=== PATIENT | female | born 1970 | race Hispanic/Latino ===

== ENCOUNTER 2020-01-12 10:18 | Emergency (ER) | payer SELFPAY ==
--- NOTE | 2020-01-12 11:12 | Emergency Department Report ---
HPI - General Chief Complaint: Psych Time Seen by Provider: 01/12/20 10:54 - HPI HPI: This is a 49-year-old female who presents to the emergency department, for a mental health evaluation, with complaints of "I am hearing voices that tell me to kill myself." On top of that, the patient has severe depression. She says "I lost my house, my mother, my son, so I have nothing else to live for." She says that her mother is in a detention and "I do not know where my son is." Patient says that the voices have been telling her to use a knife to harm h erself. She has had thoughts of hanging herself in the past but has never been able to bring herself to do it. When asked about visual hallucinations, the patient says that she sees "weird stuff happening to my family." She denies any homicidal ideations. She says that she has been diagnosed in the past with depression and anxiety but is not on any medication for it. She otherwise has a past medical history of migraines. She denies any alcohol abuse or illicit drug use. ED Past Medical Hx - Past Medical History Previous Medical History?: Yes Hx Headaches / Migraines: Yes - Surgical History Past Surgical History?: Yes Hx Cholecystectomy: Yes Additional Surgical History: c section, hernia repair - Social History Smoking Status: Current Every Day Smoker Substance Use Type: None - Medications Home Medications: Home Medications Medication Instructions Recorded Confirmed Last Taken Type No Known Home Medications [No 01/12/20 01/12/20 Unknown History Reported Home Medications] ED Review of Systems ROS: Stated complaint: HEARING VOICES Other details as noted in HPI Comment: All other systems reviewed and negative Constitutional: denies: chills, fever Eyes: denies: vision change Respiratory: denies: shortness of breath Cardiovascular: denies: chest pain Gastrointestinal: denies: abdominal pain Musculoskeletal: denies: back pain, arthralgia Neurological: denies: headache, weakness Psychiatric: auditory hallucinations, visual hallucinations, suicidal thoughts. denies: homicidal thoughts Physical Exam - Physical Exam Vital Signs: Vital Signs 01/12/20 10:36 Temperature 98.1 F Pulse Rate 110 H Respiratory 20 Rate Blood Pressure 158/95 O2 Sat by Pulse 97 Oximetry Physical Exam: GENERAL: The patient is well-developed well-nourished. HENT: Normocephalic. Atraumatic. Patient has moist mucous membranes. EYES: Extraocular motions are intact. NECK: Supple. Trachea is midline. CHEST/LUNGS: Clear to auscultation. There is no respiratory distress noted. HEART/CARDIOVASCULAR: Regular. There is no tachycardia. ABDOMEN: Abdomen is soft, nontender. Patient has normal bowel sounds. SKIN: Skin is warm and dry. NEURO: The patient is awake, alert, and oriented. The patient is cooperative. Normal speech. MUSCULOSKELETAL: There is no tenderness or deformity. There is no limitation range of motion. PSYCH: Patient is tearful. ED Course Vital Signs 01/12/20 10:36 Temperature 98.1 F Pulse Rate 110 H Respiratory 20 Rate Blood Pressure 158/95 O2 Sat by Pulse 97 Oximetry - Reevaluation(s) Reevaluation #1: 01/12/20 17:06 Lab Results 01/12/20 01/12/20 01/12/20 Range/Units 11:06 11:06 11:06 WBC 11.8 H (4.5-11.0) K/mm3 RBC 5.27 H (3.65-5.03) M/mm3 Hgb 15.9 H (10.1-14.3) gm/dl Hct 46.4 H (30.3-42.9) % MCV 88 (79-97) fl MCH 30 (28-32) pg MCHC 34 (30-34) % RDW 14.0 (13.2-15.2) % Plt Count 276 (140-440) K/mm3 Lymph % (Auto) 17.0 (13.4-35.0) % [place] % (Auto) 4.0 (0.0-7.3) % Eos % (Auto) 0.6 (0.0-4.3) % Baso % (Auto) 0.9 (0.0-1.8) % Lymph # (Auto) 2.0 (1.2-5.4) K/mm3 [place] # (Auto) 0.5 (0.0-0.8) K/mm3 Eos # (Auto) 0.1 (0.0-0.4) K/mm3 Baso # (Auto) 0.1 (0.0-0.1) K/mm3 Seg Neutrophils % 77.5 H (40.0-70.0) % Seg Neutrophils # 9.2 H (1.8-7.7) K/mm3 Sodium 135 L (137-145) mmol/L Potassium 4.3 (3.6-5.0) mmol/L Chloride 99.8 (98-107) mmol/L Carbon Dioxide 23 (22-30) mmol/L Anion Gap 17 mmol/L BUN 12 (7-17) mg/dL Creatinine 0.9 (0.6-1.2) mg/dL Estimated GFR > 60 ml/min BUN/Creatinine Ratio 13 % Glucose 121 H (65-100) mg/dL Calcium 9.8 (8.4-10.2) mg/dL Urine Color (Yellow) Urine Turbidity (Clear) Urine pH (5.0-7.0) Ur Specific [place] (1.003-1.030) Urine Protein (Negative) mg/dL Urine Glucose (UA) (Negative) mg/dL Urine Ketones (Negative) mg/dL Urine Blood (Negative) Urine Nitrite (Negative) Urine Bilirubin (Negative) Urine Ictotest (Negative) Urine Urobilinogen (<2.0) mg/dL Ur Leukocyte Esterase (Negative) Urine WBC (Auto) (0.0-6.0) /HPF Urine RBC (Auto) (0.0-6.0) /HPF U Epithel Cells (Auto) (0-13.0) /HPF Urine Bacteria (Auto) (Negative) /HPF Urine Mucus /HPF Urine Opiates Screen Urine Methadone Screen Ur Barbiturates Screen Ur Phencyclidine Scrn Ur Amphetamines Screen U Benzodiazepines Scrn Urine Cocaine Screen U Marijuana (THC) Screen Drugs of Abuse Note Plasma/Serum Alcohol < 0.01 (0-0.07) % 01/12/20 01/12/20 Range/Units Unknown Unknown WBC (4.5-11.0) K/mm3 RBC (3.65-5.03) M/mm3 Hgb (10.1-14.3) gm/dl Hct (30.3-42.9) % MCV (79-97) fl MCH (28-32) pg MCHC (30-34) % RDW (13.2-15.2) % Plt Count (140-440) K/mm3 Lymph % (Auto) (13.4-35.0) % [place] % (Auto) (0.0-7.3) % Eos % (Auto) (0.0-4.3) % Baso % (Auto) (0.0-1.8) % Lymph # (Auto) (1.2-5.4) K/mm3 [place] # (Auto) (0.0-0.8) K/mm3 Eos # (Auto) (0.0-0.4) K/mm3 Baso # (Auto) (0.0-0.1) K/mm3 Seg Neutrophils % (40.0-70.0) % Seg Neutrophils # (1.8-7.7) K/mm3 Sodium (137-145) mmol/L Potassium (3.6-5.0) mmol/L Chloride (98-107) mmol/L Carbon Dioxide (22-30) mmol/L Anion Gap mmol/L BUN (7-17) mg/dL Creatinine (0.6-1.2) mg/dL Estimated GFR ml/min BUN/Creatinine Ratio % Glucose (65-100) mg/dL Calcium (8.4-10.2) mg/dL Urine Color [place] (Yellow) Urine Turbidity Slightly-cloudy (Clear) Urine pH 5.0 (5.0-7.0) Ur Specific [place] 1.027 (1.003-1.030) Urine Protein 100 mg/dl (Negative) mg/dL Urine Glucose (UA) Neg (Negative) mg/dL Urine Ketones Neg (Negative) mg/dL Urine Blood Sm (Negative) Urine Nitrite Neg (Negative) Urine Bilirubin Sm (Negative) Urine Ictotest Negative (Negative) Urine Urobilinogen 2.0 (<2.0) mg/dL Ur Leukocyte Esterase Mod (Negative) Urine WBC (Auto) 16.0 H (0.0-6.0) /HPF Urine RBC (Auto) 14.0 (0.0-6.0) /HPF U Epithel Cells (Auto) 10.0 (0-13.0) /HPF Urine Bacteria (Auto) 1+ (Negative) /HPF Urine Mucus 3+ /HPF Urine Opiates Screen Negative Urine Methadone Screen Negative Ur Barbiturates Screen Negative Ur Phencyclidine Scrn Negative Ur Amphetamines Screen Negative U Benzodiazepines Scrn Negative Urine Cocaine Screen Negative U Marijuana (THC) Screen Positive Drugs of Abuse Note Disclamer Plasma/Serum Alcohol (0-0.07) % ED Medical Decision Making - Lab Data Result diagrams: 01/12/20 11:06 01/12/20 11:06 - Medical Decision Making This patient presents to the emergency department with auditory and visual hallucinations. The auditory hallucinations are command hallucinations telling the patient to kill herself. Patient is depressed and tearful. Otherwise she is awake, oriented and alert. However the patient has been made a 1013 secondary to the suicidal ideations. Labs have been unremarkable other than a mild urinary tract infection for which she will be treated with Macrobid. Her vital signs have been reassuring throughout her ED course thus far including being afebrile. She was seen by the psychiatric business operations director who agrees with the patient is a 1013 and they will try to get the patient admitted for inpatient stabilization. She is medically cleared for psychiatric placement. Critical Care Time: No Critical care attestation.: If time is entered above; I have spent that time in minutes in the direct care of this critically ill patient, excluding procedure time. ED Disposition Clinical Impression: History of command hallucinations, Suicidal ideations Depression Qualifiers: Depression Type: unspecified Qualified Code(s): F32.9 - Major depressive disorder, single episode, unspecified UTI (urinary tract infection) Qualifiers: Urinary tract infection type: acute cystitis Hematuria presence: without hem aturia Qualified Code(s): N30.00 - Acute cystitis without hematuria Disposition: DC/TX-65 PSY HOSP/PSY UNIT Is pt being admited?: No Condition: Stable Time of Disposition: 17:08
[2020-01-12 11:17] LABS: Basophils # (Auto) 0.1 K/mm3 (0.0-0.1); Basophils % (Auto) 0.9 % (0.0-1.8); Eosinophils # (Auto) 0.1 K/mm3 (0.0-0.4); Eosinophils % (Auto) 0.6 % (0.0-4.3); Hematocrit 46.4 % (30.3-42.9); Hemoglobin 15.9 gm/dl (10.1-14.3); Mean Corpuscular HGB Conc 34 % (30-34); Mean Corpuscular Volume 88 fl (79-97); Monocytes # (Auto) 0.5 K/mm3 (0.0-0.8); Platelet Count 276 K/mm3 (140-440); Red Blood Count 5.27 M/mm3 (3.65-5.03)
[2020-01-12 11:36] LABS: BUN/Creatinine Ratio 13; Blood Urea Nitrogen 12 mg/dL (7-17); Calcium 9.8 mg/dL (8.4-10.2); Hemolysis Index 13
[2020-01-12 13:17] LABS: Bacteria,Urine 1+ /HPF (Negative); Bilirubin,Urine SM (Negative); Blood,Urine SM (Negative); Color,Urine Amber (Yellow); Mucus,Urine 3+ /HPF
[2020-01-12 13:23] LABS: Amphetamine Screen,Urine Negative; Benzodiazepines Screen,Urine Negative; Cocaine Screen,Urine Negative; Methadone Screen,Urine Negative; Opiate Screen,Urine Negative
[2020-01-12 13:38] LABS: Ictotest,Urine Negative (Negative)
[2020-01-12 13:41] LABS: Cannabinoid Screen,Urine Positive
[2020-01-12] MEDS ORDERED: ALPRAZolam 0.5 MG TAB PO ONE (13:48)
[2020-01-12] MEDS: NITROFURANTOIN MONOHYD/M-CRYST 100 MG CAP PO SCH ×2 (17:26→21:33)
[2020-01-12] MEDS ORDERED: hydrOXYzine HCL 25 MG TAB PO ONE (18:00)
[2020-01-12 21:21] LABS: Hematocrit 42.7 % (30.3-42.9); Hemoglobin 14.2 gm/dl (10.1-14.3); Mean Corpuscular HGB Conc 33 % (30-34); Mean Corpuscular Volume 90 fl (79-97); Platelet Count 232 K/mm3 (140-440); Red Blood Count 4.77 M/mm3 (3.65-5.03); Red Cell Distribution Width 14.1 % (13.2-15.2)
--- NOTE | 2020-01-13 10:56 | Consultation ---
History of Present Illness - Reason for Consult Consult date: 01/13/20 Reason for consult: depression, SI - History of Present Psychiatric Illness Paola Guardado is a 49y/o female who presented to the ER for severe depression, suicidal thoughts and hallucinations. During my interview with the patient today, she was sitting in bed. She was tearful. She makes fair eye contact. She verbalizes being "depressed and anxious." She also complains of "severe pain in her lower back." The patient says, "I've lost my house, my son, mom mom and everything I've owned." She verbalizes feeling suicidal with plans "to run into traffic and end it instantly or just take some pills." She says, "I don't know." She verbalizes voices saying "kill myself, I'm not good and I'm not worth l iving." She denies any illicit drug, alcohol or nicotine. She denies any psychiatric medications. She starts sobbing and states, "I know I shouldn't feel the way I feel." PAST PSYCHIATRIC HISTORY Diagnoses: Depression and anxiety Suicide attempts or Self-harm behavior: Denies Prior psychiatric hospitalizations: Denies Substance Abuse history: Denies Previous psychiatric medications tried: Not on any medications Outpatient treatment: none reported PAST MEDICAL HISTORY: none reported Family Psychiatric History: None reported or documented SOCIAL HISTORY Marital Status: single Living Arrangements: homeless Employment Status: unemployed Access to guns/weapons: none reported Education: High school drop out History of Abuse: none reported Legal History: yes REVIEW OF SYSTEMS Constitutional: Negative for weight loss ENT: Negative for stridor Respiratory: Negative for cough or hemoptysis All other systems reviewed and are negative MENTAL STATUS EXAMINATION General Appearance and Behavior: Age appropriate, fair hygiene, wearing appro priate clothes, lying in bed, fair eye contact, cooperative questioning. Cooperation: Participating Mood: Depressed, anxious Affect and affective range: Tearful Thought Process: Goal directed Thought Content: Hopelessness, hallucinations Speech: Normal volume, Regular rate and rhythm, Suicidal Ideation: Yes Homicidal Ideation: Denies HI Hallucinations: Auditory Delusions: None elicited Impulse Control: Impaired Insight and Judgment: Limited insight and judgment Memory: Short term memory intact Orientation: Alert, oriented, Assessment and Plan Major Depressive Disorder, Severe w/Psychotic Features Generalized Anxiety Disorder Treatment Plan MEDICATIONS Start Abilify 5mg po daily Start Zoloft 25mg po daily Start Klonopin 0.5mg po qd prn anxiety Start Trazodone 50mg po daily Risks, benefits and alternatives of medications discussed with the patient, questions answered and consent obtained from patient. PSYCHOTHERAPY: Supportive psychotherapy provided MEDICAL: Per primary team DELIRIUM PRECAUTIONS: Please re-orient patient frequently, keep lights on during the day, and minimize benzodiazepines and opiates as these medications could worsen patient's confusion. 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 Please contact with any questions and/or concerns. Medications and Allergies Allergies Allergy/AdvReac Type Severity Reaction Status Date / Time No Known Allergies Allergy Unverified 01/12/20 10:51 Home Medications Medication Instructions Recorded Confirmed Last Taken Type No Known Home Medications [No 01/12/20 01/12/20 Unknown History Reported Home Medications] Active Meds: Active Medications Nitrofurantoin Macrocrystals (Macrobid) 100 mg PO Q12HR [place] Last Admin: 01/12/20 21:33 Dose: Not Given Documented by: Mental Status Exam - Vital signs Last Vital Signs Temp 97.4 F L 01/13/20 10:31 Pulse 89 01/13/20 10:31 Resp 18 01/13/20 10:31 BP 135/79 01/13/20 10:31 Pulse Ox 100 01/13/20 10:31 Results Result Diagrams: 01/12/20 21:07 01/12/20 11:06 Abnormal lab results 01/12/20 01/12/20 01/12/20 Range/Units 11:06 11:06 Unknown WBC 11.8 H (4.5-11.0) K/mm3 RBC 5.27 H (3.65-5.03) M/mm3 Hgb 15.9 H (10.1-14.3) gm/dl Hct 46.4 H (30.3-42.9) % Seg Neutrophils % 77.5 H (40.0-70.0) % Seg Neutrophils # 9.2 H (1.8-7.7) K/mm3 Sodium 135 L (137-145) mmol/L Glucose 121 H (65-100) mg/dL Urine WBC (Auto) 16.0 H (0.0-6.0) /HPF All other labs normal.
[2020-01-13] MEDS ORDERED: ACETAMINOPHEN 325 MG TAB ONE (11:17)
[2020-01-13] MEDS ORDERED: ONDANSETRON 4 MG ODT TAB ONE (11:18)
[2020-01-13] MEDS ORDERED: ACETAMINOPHEN 325 MG TAB PO ONE (11:21)
[2020-01-13] MEDS ORDERED: ONDANSETRON 4 MG ODT TAB PO ONE (11:21)
[2020-01-13] MEDS: ARIPiprazole 5 MG TAB PO SCH (11:38)
[2020-01-13] MEDS: NITROFURANTOIN MONOHYD/M-CRYST 100 MG CAP PO SCH ×2 (11:38→22:28)
[2020-01-13] MEDS: SERTRALINE 25 MG TAB PO SCH (11:39)
[2020-01-13] MEDS ORDERED: traZODone 50 MG TAB PO SCH (22:00)
[2020-01-14] MEDS: SERTRALINE 25 MG TAB PO SCH (10:07)
[2020-01-14] MEDS: ARIPiprazole 5 MG TAB PO SCH (10:07)
[2020-01-14] MEDS: NITROFURANTOIN MONOHYD/M-CRYST 100 MG CAP PO SCH (10:07)
--- NOTE | 2020-01-14 10:19 | Progress Note ---
Subjective - Reason for Consult Consult date: 01/14/20 Reason for consult: SI, Severe Depression - Chief Complaint Chief complaint: During my interview with the patient, she is sitting up in bed. She is a/o x 3. She is calm and cooperative. Her affect is restricted. She still verbalizes "hearing the voices telling me I'm no good, and to just kill myself." She says "they keep saying I need to just end it." The patient verbalizes feeling suicidal, "not wanting to live." She also says she didn't sleep well last night. REVIEW OF SYSTEMS Constitutional: Negative for weight loss ENT: Negative for stridor Respiratory: Negative for cough or hemoptysis All other systems reviewed and are negative MENTAL STATUS EXAMINATION General Appearance and Behavior: Age appropriate, fair hygiene, wearing appropriate clothes, sitting up in bed, fair eye contact, cooperative questioning. Cooperation: Participating Mood: Depressed Affect and affective range: Restricted Thought Process: Goal directed Thought Content: Hopelessness, hallucinations Speech: Normal volume, Regular rate and rhythm, Suicidal Ideation: Yes Homicidal Ideation: Denies HI Hallucinations: Auditory Delusions: None elicited Impulse Control: Impaired Insight and Judgment: Limited insight and judgment Memory: Short term memory intact Orientation: Alert, oriented, Assessment and Plan Major Depressive Disorder, Severe w/Psychotic Features Generalized Anxiety Disorder Treatment Plan MEDICATIONS Increase Zoloft 50mg po daily Increase Trazodone 75mg po daily Risks, benefits and alternatives of medications discussed with the patient, questions answered and consent obtained from patient. PSYCHOTHERAPY: Supportive psychotherapy provided MEDICAL: Per primary team DELIRIUM PRECAUTIONS: Please re-orient patient frequently, keep lights on during the day, and minimize benzodiazepines and opiates as these medications could worsen patient's confusion. OFFICE PROFESSIONAL: DISPOSITION: Recommend acute inpatient psychiatric hospitalization LEGAL STATUS: 1013 FOLLOW-UP: Will follow Thank you for the consult. Please contact with any questions and/or concerns. Mental Status Exam - Vital signs Last Vital Signs Temp 98.6 F 01/14/20 07:56 Pulse 65 01/14/20 07:56 Resp 16 01/14/20 07:56 BP 124/57 01/14/20 07:56 Pulse Ox 95 01/14/20 07:56
[2020-01-14] MEDS: traZODone 50 MG TAB PO SCH (21:35)
[2020-01-15] MEDS: SERTRALINE 50 MG TAB PO SCH (10:19)
[2020-01-15] MEDS: ARIPiprazole 5 MG TAB PO SCH (10:19)
--- NOTE | 2020-01-15 11:15 | Progress Note ---
Subjective - Reason for Consult Consult date: 01/15/20 Reason for consult: SI, severe depression - Chief Complaint Chief complaint: During my interview with the patient, she is sitting up in bed. She is a/o x 3. She is calm and cooperative. Her affect is restricted. The patient says she's hearing "a lot of voices telling my I need to ." She says "some are whispering and some are yelling." She verbalizes her mood as "depressed and anxious" and states, she "doesn't want to live." REVIEW OF SYSTEMS Constitutional: Negative for weight loss ENT: Negative for stridor Respiratory: Negative for cough or hemoptysis All other systems reviewed and are negative MENTAL STATUS EXAMINATION General Appearance and Behavior: Age appropriate, fair hygiene, wearing appropriate clothes, sitting up in bed, fair eye contact, cooperative questioning. Cooperation: Participating Mood: Depressed Affect and affective range: Restricted Thought Process: Goal directed Thought Content: Hopelessness, hallucinations Speech: Normal volume, Regular rate and rhythm, Suicidal Ideation: Yes Homicidal Ideation: Denies HI Hallucinations: Auditory Delusions: None elicited Impulse Control: Impaired Insight and Judgment: Limited insight and judgment Memory: Short term memory intact Orientation: Alert, oriented, Assessment and Plan Major Depressive Disorder, Severe w/Psychotic Features Generalized Anxiety Disorder Treatment Plan MEDICATIONS Increase Abilify 10mg po daily Risks, benefits and alternatives of medications discussed with the patient, questions answered and consent obtained from patient. PSYCHOTHERAPY: Supportive psychotherapy provided MEDICAL: Per primary team DELIRIUM PRECAUTIONS: Please re-orient patient frequently, keep lights on during the day, and minimize benzodiazepines and opiates as these medications could worsen patient's confusion. 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 Please contact with any questions and/or concerns. Mental Status Exam - Vital signs Last Vital Signs Temp 97.3 F L 01/15/20 08:39 Pulse 66 01/15/20 08:39 Resp 18 01/15/20 08:39 BP 139/70 01/15/20 08:39 Pulse Ox 100 01/15/20 08:39
[2020-01-15] MEDS ORDERED: IBUPROFEN 600 MG TAB PO ONE (17:40)
[2020-01-15] MEDS: traZODone 50 MG TAB PO SCH (21:40)
[2020-01-16] MEDS ORDERED: ARIPiprazole 10 MG TAB PO SCH (10:00)
[2020-01-16] MEDS ORDERED: LORazepam 0.5 MG TAB ONE (13:44)
--- NOTE | 2020-01-16 19:18 | Progress Note ---
Subjective - Reason for Consult Consult date: 01/16/20 Reason for consult: depression, SI - Chief Complaint Chief complaint: During my interview with the patient, she is sitting up in bed. The patient tested positive positive for Covid. She is a/o x 3. She still verbalizes suicidal thoughts and voices telling her to "kill myself." REVIEW OF SYSTEMS Constitutional: Negative for weight loss ENT: Negative for stridor Respiratory: Negative for cough or hemoptysis All other systems reviewed and are negative MENTAL STATUS EXAMINATION General Appearance and Behavior: Age appropriate, fair hygiene, wearing appropriate clothes, fair eye contact, cooperative questioning. Cooperation: Participating Mood: Depressed Affect and affective range: Restricted Thought Process: Goal directed Thought Content: Hopelessness, hallucinations Speech: Normal volume, Regular rate and rhythm, Suicidal Ideation: Yes Homicidal Ideation: Denies HI Hallucinations: Auditory Delusions: None elicited Impulse Control: Impaired Insight and Judgment: Limited insight and judgment Memory: Short term memory intact Orientation: Alert, oriented, Assessment and Plan Major Depressive Disorder, Severe w/Psychotic Features Generalized Anxiety Disorder Treatment Plan MEDICATIONS Increase Abilify 15mg po daily Risks, benefits and alternatives of medications discussed with the patient, questions answered and consent obtained from patient. PSYCHOTHERAPY: Supportive psychotherapy provided MEDICAL: Per primary team DELIRIUM PRECAUTIONS: Please re-orient patient frequently, keep lights on during the day, and minimize benzodiazepines and opiates as these medications could worsen patient's confusion. 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 Please contact with any questions and/or concerns. Mental Status Exam - Vital signs Last Vital Signs Temp 97.3 F L 01/15/20 08:39 Pulse 66 01/15/20 08:39 Resp 18 01/15/20 08:39 BP 139/70 01/15/20 08:39 Pulse Ox 100 01/15/20 08:39
[2020-01-16] MEDS: traZODone 50 MG TAB PO SCH (22:28)
[2020-01-17] MEDS: SERTRALINE 50 MG TAB PO SCH ×2 (08:38→10:20)
[2020-01-17] MEDS ORDERED: ARIPiprazole 15 MG TAB PO SCH (10:00)
--- NOTE | 2020-01-17 11:21 | Progress Note ---
Subjective - Reason for Consult Consult date: 01/17/20 Reason for consult: SI - Chief Complaint Chief complaint: During my interview with the patient, she is sitting up in bed. The patient states she is "better" as far has her hallucinations and suicidal thoughts. She says the hallucinations are there "some but better." She says her suicidal thoughts have decreased a lot. She says "it's the COVID that I'm worried about now." The patient says she slept well. REVIEW OF SYSTEMS Constitutional: Negative for weight loss ENT: Negative for stridor Respiratory: Negative for cough or hemoptysis All other systems reviewed and are negative MENTAL STATUS EXAMINATION General Appearance and Behavior: Age appropriate, fair hygiene, wearing appropriate clothes, fair eye contact, cooperative questioning. Cooperation: Participating Mood: "better" Affect and affective range: Congruent with stated mood Thought Process: Goal directed Thought Content: logical Speech: Normal volume, Regular rate and rhythm, Suicidal Ideation: Passive, but better Homicidal Ideation: Denies HI Hallucinations: Auditory Delusions: None elicited Impulse Control: Limited Insight and Judgment: Limited insight and judgment Memory: Short term memory intact Orientation: Alert, oriented, Assessment and Plan Major Depressive Disorder, Severe w/Psychotic Features Generalized Anxiety Disorder Treatment Plan MEDICATIONS Increase Abilify 20mg po daily Risks, benefits and alternatives of medications discussed with the patient, questions answered and consent obtained from patient. PSYCHOTHERAPY: Supportive psychotherapy provided MEDICAL: Per primary team DELIRIUM PRECAUTIONS: Please re-orient patient frequently, keep lights on during the day, and minimize benzodiazepines and opiates as these medications could worsen patient's confusion. 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 The patient understands that FOLLOW-UP: Will follow Legal status: 1013 Thank you for the consult. Please contact with any questions and/or concerns. Mental Status Exam - Vital signs Last Vital Signs Temp 97.9 F 01/17/20 07:41 Pulse 64 01/17/20 07:41 Resp 20 01/17/20 07:41 BP 102/47 01/17/20 07:41 Pulse Ox 96 01/17/20 07:41
[2020-01-17] MEDS ORDERED: hydrOXYzine PAMOATE 25 MG CAP PO ONE (15:27)
[2020-01-17] MEDS: traZODone 50 MG TAB PO SCH (22:28)
[2020-01-17] MEDS: clonazePAM 0.5 MG TAB PO PRN (22:31)
[2020-01-18] MEDS: ARIPiprazole 10 MG TAB PO SCH (09:45)
[2020-01-18] MEDS: SERTRALINE 50 MG TAB PO SCH (09:46)
--- NOTE | 2020-01-18 10:04 | Progress Note ---
Subjective - Reason for Consult Consult date: 01/18/20 Reason for consult: SI/Depression - Chief Complaint Chief complaint: During my interview with the patient, she is sitting up in bed eating. She is a/o x 3. She is calm and cooperative. The patient verbalizes feeling "much better." She says she's "it comes and goes, and but I don't have a plan." The patient says most of her problems come from "not having a place to go." She says her "brother called up here. I'm not sure how he found out." When asking the patient if she could live with her brother, she replied "I doubt it. My [id number] hates my guts." She denies hallucinations of any kind. REVIEW OF SYSTEMS Constitutional: Negative for weight loss ENT: Negative for stridor Respiratory: Negative for cough or hemoptysis All other systems reviewed and are negative MENTAL STATUS EXAMINATION General Appearance and Behavior: Age appropriate, fair hygiene, wearing appropriate clothes, fair eye contact, cooperative questioning. Cooperation: Participating Mood: "much better" Affect and affective range: Congruent with stated mood Thought Process: Goal directed Thought Content: logical Speech: Normal volume, Regular rate and rhythm, Suicidal Ideation: Passive, but better, no plan Homicidal Ideation: Denies HI Hallucinations: Denies Delusions: None elicited Impulse Control: Limited Insight and Judgment: Limited insight and judgment Memory: Short term memory intact Orientation: Alert, oriented, Assessment and Plan Major Depressive Disorder, Severe w/Psychotic Features Generalized Anxiety Disorder Treatment Plan D/c 1013 MEDICATIONS No changes today Risks, benefits and alternatives of medications discussed with the patient, questions answered and consent obtained from patient. PSYCHOTHERAPY: Supportive psychotherapy provided MEDICAL: Per primary team DELIRIUM PRECAUTIONS: Please re-orient patient frequently, keep lights on during the day, and minimize benzodiazepines and opiates as these medications could worsen patient's confusion. ASSISTANT DIRECTOR OF PLANT OPERATIONS: DISPOSITION: Do not recommend acute inpatient psychiatric hospitalization at this time. The patient symptoms can be managed on an outpatient basis. The patient is COVID + and will likely not meet criteria due to this. Case management needs to be on the case to help with placement. The patient understands that if suicidal ideation becomes worse she is to seek immediate assistance including the crisis hotline, 911/ER. The wrestling coach to further discuss the safety plan, give the patient outpatient referrals, cognitive behavior therapy, assistance with medication, and placement referrals. Will sign off. Thank you for the consult. Please re-consult if needed in the future. Please contact with any questions and/or concerns. Mental Status Exam - Vital signs Last Vital Signs Temp 98.3 F 01/18/20 08:16 Pulse 74 01/18/20 08:16 Resp 18 01/18/20 08:16 BP 99/50 01/18/20 08:16 Pulse Ox 100 01/18/20 00:45
[2020-01-18] MEDS: clonazePAM 0.5 MG TAB PO PRN (16:02)
[2020-01-18] MEDS: traZODone 50 MG TAB PO SCH (22:12)
[2020-01-19] MEDS: SERTRALINE 50 MG TAB PO SCH (09:57)
[2020-01-19] MEDS: ARIPiprazole 10 MG TAB PO SCH (09:57)
[2020-01-19] MEDS: clonazePAM 0.5 MG TAB PO PRN (13:07)
[2020-01-20] MEDS: traZODone 50 MG TAB PO SCH ×2 (10:14→22:39)
[2020-01-20] MEDS: clonazePAM 0.5 MG TAB PO PRN (13:20)
[2020-01-20] MEDS: ARIPiprazole 10 MG TAB PO SCH (13:20)
[2020-01-20] MEDS: SERTRALINE 50 MG TAB PO SCH (13:20)
[2020-01-21] MEDS: ARIPiprazole 10 MG TAB PO SCH (10:07)
[2020-01-21] MEDS: SERTRALINE 50 MG TAB PO SCH (10:08)
[2020-01-21] MEDS: clonazePAM 0.5 MG TAB PO PRN ×2 (12:42→22:47)
[2020-01-21] MEDS: traZODone 50 MG TAB PO SCH (22:15)
[2020-01-22 10:19] VITALS: BP 109/65
[2020-01-22] MEDS: ARIPiprazole 10 MG TAB PO SCH (11:14)
[2020-01-22] MEDS: SERTRALINE 50 MG TAB PO SCH (11:15)
== END 2020-01-22 11:16 | disposition home or self-care (01) ==
LOC: EEVIPCON 10:18 → ED 10:18
DX: R44.0 Auditory hallucinations (principal)
CPT/HCPCS: 36415; 80048; 80307; 80320; 81001; 85025; 85027; 87086; G0480; Q0162; Q0177; U0003

== ENCOUNTER 2020-01-22 18:14 | Emergency (ER) | payer SELFPAY ==
--- NOTE | 2020-01-22 18:33 | Emergency Department Report ---
Blank Doc - Documentation Documentation: This is a 49-year-old female that presents with hearing voices and SI. This initial assessment/diagnostic orders/clinical plan/treatment(s) is/are subject to change based on patient's health status, clinical progression and re- assessment by fellow clinical providers in the ED. Further treatment and workup at subsequent clinical providers discretion. Patient/guardians urged not to elope from the ED as their condition may be serious if not clinically assessed and managed. Initial orders include: 1- Patient sent to MAIN ED for further evaluation and treatment 2- academic services professional was notified to have patient be brought back [facility]. 3- RN was notified to keep patient as close range and observation until room available 4- Patient presents with substantial risk of imminent harm to self, appears to be so unable to care for his/her own physical health and safety as to create an imminently life-endangering crisis, and has committed/expressed life endangering crisis to self. Due to this and other complaints, patient is put on psych hold.
[2020-01-22 19:07] LABS: Basophils # (Auto) 0.1 K/mm3 (0.0-0.1); Basophils % (Auto) 1.2 % (0.0-1.8); Eosinophils % (Auto) 0.5 % (0.0-4.3); Hematocrit 42.5 % (30.3-42.9); Hemoglobin 14.3 gm/dl (10.1-14.3); Lymphocytes % (Auto) 28.7 % (13.4-35.0); Mean Corpuscular HGB Conc 34 % (30-34); Mean Corpuscular Volume 90 fl (79-97); Monocytes # (Auto) 0.3 K/mm3 (0.0-0.8); Monocytes % (Auto) 4.7 % (0.0-7.3); Platelet Count 249 K/mm3 (140-440); Red Blood Count 4.75 M/mm3 (3.65-5.03); Red Cell Distribution Width 13.3 % (13.2-15.2)
[2020-01-22 19:25] LABS: BUN/Creatinine Ratio 25; Blood Urea Nitrogen 20 mg/dL (7-17); Calcium 9.8 mg/dL (8.4-10.2); Hemolysis Index 11
[2020-01-22 21:26] LABS: Bilirubin,Urine NEG (Negative); Blood,Urine MOD (Negative); Color,Urine Yellow (Yellow); Mucus,Urine FEW /HPF; Protein,Urine <15 mg/dL mg/dL (Negative); Urobilinogen,Urine < 2.0 mg/dL (<2.0)
[2020-01-22 21:32] LABS: Amphetamine Screen,Urine PRESUMPTIVE NEGATIVE; Benzodiazepines Screen,Urine PRESUMPTIVE NEGATIVE; Cannabinoid Screen,Urine PRESUMPTIVE NEGATIVE; Cocaine Screen,Urine PRESUMPTIVE NEGATIVE; Methadone Screen,Urine PRESUMPTIVE NEGATIVE; Opiate Screen,Urine PRESUMPTIVE NEGATIVE
[2020-01-22] MEDS ORDERED: clonazePAM 0.5 MG TAB PO PRN (22:25)
--- NOTE | 2020-01-22 22:28 | Emergency Department Report ---
HPI - General Chief Complaint: Psych Time Seen by Provider: 01/22/20 18:31 - HPI HPI: This patient returns from the waiting room, after being discharged earlier today, with the complaints of continued auditory hallucinations and command hallucinations causing suicidal ideations. Overall the patient does admit to having depression. Patient was not picked up by the person that she was depending upon to pick her up from the hospital. She says that she contacted her brothers and "they do not care." She feels that she has little to no worth. Apparently her mother is currently sick and "dying." Patient says that she hears voices "every day of my life." Patient was cleared by psychiatry but she says that she was continuing to hear voices and has suicidal ideations. Patient says that she would have a plan to either jump off of a building or cut her wrists to harm herself. She denies any homicidal ideations. ED Past Medical Hx - Past Medical History Previous Medical History?: Yes Hx Headaches / Migraines: Yes Hx Psychiatric Treatment: Yes - Surgical History Past Surgical History?: Yes Hx Cholecystectomy: Yes Additional Surgical History: c section, hernia repair - Social History Smoking Status: Current Every Day Smoker Substance Use Type: None - Medications Home Medications: Home Medications Medication Instructions Recorded Confirmed Last Taken Type ARIPiprazole [Abilify] 20 mg PO DAILY #30 tablet 01/18/20 01/22/20 Unknown Rx Sertraline [Zoloft] 50 mg PO QDAY #30 tablet 01/18/20 01/22/20 Unknown Rx clonazePAM [ Klonopin] 0.5 mg PO QHS PRN #30 tab 01/18/20 01/22/20 Unknown Rx traZODone [Desyrel] 75 mg PO QHS 01/22/20 01/22/20 Unknown History ED Review of Systems ROS: Stated complaint: HEARING VOICES/DEPRESSED Other details as noted in HPI Comment: All other systems reviewed and negative Constitutional: denies: chills, fever Respiratory: denies: cough, shortness of breath Cardiovascular: denies: chest pain Gastrointestinal: denies: abdominal pain Musculoskeletal: denies: back pain, arthralgia Neurological: denies: headache, weakness Psychiatric: anxiety, depression, auditory hallucinations, suicidal thoughts Physical Exam - Physical Exam Vital Signs: Vital Signs 01/22/20 18:26 Temperature 97.6 F Pulse Rate 71 Respiratory 18 Rate Blood Pressure 148/89 [Right] O2 Sat by Pulse 99 Oximetry Physical Exam: GENERAL: The patient is well-developed well-nourished. HENT: Normocephalic. Atraumatic. Patient has moist mucous membranes. EYES: Extraocular motions are intact. NECK: Supple. Trachea is midline. CHEST/LUNGS: Clear to auscultation. There is no respiratory distress noted. HEART/CARDIOVASCULAR: Regular. There is no tachycardia. There is no murmur. ABDOMEN: Abdomen is soft, nontender. Patient has normal bowel sounds. SKIN: Skin is warm and dry. NEURO: The patient is awake, alert, and oriented. The patient is cooperative. Normal speech. MUSCULOSKELETAL: There is no tenderness or deformity. ED Course Vital Signs 01/22/20 18:26 Temperature 97.6 F Pulse Rate 71 Respiratory 18 Rate Blood Pressure 148/89 [Right] O2 Sat by Pulse 99 Oximetry - Reevaluation(s) Reevaluation #1: 01/23/20 03:49 Lab Results 01/22/20 01/22/20 01/22/20 Range/Units 18:47 18:47 18:47 WBC 7.0 (4.5-11.0) K/mm3 RBC 4.75 (3.65-5.03) M/mm3 Hgb 14.3 (10.1-14.3) gm/dl Hct 42.5 (30.3-42.9) % MCV 90 (79-97) fl MCH 30 (28-32) pg MCHC 34 (30-34) % RDW 13.3 (13.2-15.2) % Plt Count 249 (140-440) K/mm3 Lymph % (Auto) 28.7 (13.4-35.0) % [place] % (Auto) 4.7 (0.0-7.3) % Eos % (Auto) 0.5 (0.0-4.3) % Baso % (Auto) 1.2 (0.0-1.8) % Lymph # (Auto) 2.0 (1.2-5.4) K/mm3 [place] # (Auto) 0.3 (0.0-0.8) K/mm3 Eos # (Auto) 0.0 (0.0-0.4) K/mm3 Baso # (Auto) 0.1 (0.0-0.1) K/mm3 Seg Neutrophils % 64.9 (40.0-70.0) % Seg Neutrophils # 4.6 (1.8-7.7) K/mm3 Sodium 138 (137-145) mmol/L Potassium 4.1 (3.6-5.0) mmol/L Chloride 98.0 (98-107) mmol/L Carbon Dioxide 25 (22-30) mmol/L Anion Gap 19 mmol/L BUN 20 H (7-17) mg/dL Creatinine 0.8 (0.6-1.2) mg/dL Estimated GFR > 60 ml/min BUN/Creatinine Ratio 25 % Glucose 106 H (65-100) mg/dL Calcium 9.8 (8.4-10.2) mg/dL Urine Color (Yellow) Urine Turbidity (Clear) Urine pH (5.0-7.0) Ur Specific Shield[place] (1.003-1.030) Urine Protein (Negative) mg/dL Urine Glucose (UA) (Negative) mg/dL Urine Ketones (Negative) mg/dL Urine Blood (Negative) Urine Nitrite (Negative) Urine Bilirubin (Negative) Urine Urobilinogen (<2.0) mg/dL Ur Leukocyte Esterase (Negative) Urine WBC (Auto) (0.0-6.0) /HPF Urine RBC (Auto) (0.0-6.0) /HPF U Epithel Cells (Auto) (0-13.0) /HPF Urine Mucus /HPF Salicylates < 0.3 L (2.8-20.0) mg/dL Urine Opiates Screen Urine Methadone Screen Acetaminophen (10.0-30.0) ug/mL Ur Barbiturates Screen Ur Phencyclidine Scrn Ur Amphetamines Screen U Benzodiazepines Scrn Urine Cocaine Screen U Marijuana (THC) Screen Drugs of Abuse Note Plasma/Serum Alcohol (0-0.07) % 01/22/20 01/22/20 01/22/20 Range/Units 18:47 18:47 20:49 WBC (4.5-11.0) K/mm3 RBC (3.65-5.03) M/mm3 Hgb (10.1-14.3) gm/dl Hct (30.3-42.9) % MCV (79-97) fl MCH (28-32) pg MCHC (30-34) % RDW (13.2-15.2) % Plt Count (140-440) K/mm3 Lymph % (Auto) (13.4-35.0) % [place] % (Auto) (0.0-7.3) % Eos % (Auto) (0.0-4.3) % Baso % (Auto) (0.0-1.8) % Lymph # (Auto) (1.2-5.4) K/mm3 [place] # (Auto) (0.0-0.8) K/mm3 Eos # (Auto) (0.0-0.4) K/mm3 Baso # (Auto) (0.0-0.1) K/mm3 Seg Neutrophils % (40.0-70.0) % Seg Neutrophils # (1.8-7.7) K/mm3 Sodium (137-145) mmol/L Potassium (3.6-5.0) mmol/L Chloride (98-107) mmol/L Carbon Dioxide (22-30) mmol/L Anion Gap mmol/L BUN (7-17) mg/dL Creatinine (0.6-1.2) mg/dL Estimated GFR ml/min BUN/Creatinine Ratio % Glucose (65-100) mg/dL Calcium (8.4-10.2) mg/dL Urine Color Yellow (Yellow) Urine Turbidity Slightly-cloudy (Clear) Urine pH 5.0 (5.0-7.0) Ur Specific Shield[place] 1.026 (1.003-1.030) Urine Protein <15 mg/dl (Negative) mg/dL Urine Glucose (UA) Neg (Negative) mg/dL Urine Ketones Neg (Negative) mg/dL Urine Blood Mod (Negative) Urine Nitrite Neg (Negative) Urine Bilirubin Neg (Negative) Urine Urobilinogen < 2.0 (<2.0) mg/dL Ur Leukocyte Esterase Lg (Negative) Urine WBC (Auto) 31.0 H (0.0-6.0) /HPF Urine RBC (Auto) 7.0 (0.0-6.0) /HPF U Epithel Cells (Auto) 8.0 (0-13.0) /HPF Urine Mucus Few /HPF Salicylates (2.8-20.0) mg/dL Urine Opiates Screen Urine Methadone Screen Acetaminophen 5.0 L (10.0-30.0) ug/mL Ur Barbiturates Screen Ur Phencyclidine Scrn Ur Amphetamines Screen U Benzodiazepines Scrn Urine Cocaine Screen U Marijuana (THC) Screen Drugs of Abuse Note Plasma/Serum Alcohol < 0.01 (0-0.07) % 01/22/20 Range/Units 20:49 WBC (4.5-11.0) K/mm3 RBC (3.65-5.03) M/mm3 Hgb (10.1-14.3) gm/dl Hct (30.3-42.9) % MCV (79-97) fl MCH (28-32) pg MCHC (30-34) % RDW (13.2-15.2) % Plt Count (140-440) K/mm3 Lymph % (Auto) (13.4-35.0) % [place] % (Auto) (0.0-7.3) % Eos % (Auto) (0.0-4.3) % Baso % (Auto) (0.0-1.8) % Lymph # (Auto) (1.2-5.4) K/mm3 [place] # (Auto) (0.0-0.8) K/mm3 Eos # (Auto) (0.0-0.4) K/mm3 Baso # (Auto) (0.0-0.1) K/mm3 Seg Neutrophils % (40.0-70.0) % Seg Neutrophils # (1.8-7.7) K/mm3 Sodium (137-145) mmol/L Potassium (3.6-5.0) mmol/L Chloride (98-107) mmol/L Carbon Dioxide (22-30) mmol/L Anion Gap mmol/L BUN (7-17) mg/dL Creatinine (0.6-1.2) mg/dL Estimated GFR ml/min BUN/Creatinine Ratio % Glucose (65-100) mg/dL Calcium (8.4-10.2) mg/dL Urine Color (Yellow) Urine Turbidity (Clear) Urine pH (5.0-7.0) Ur Specific [place] (1.003-1.030) Urine Protein (Negative) mg/dL Urine Glucose (UA) (Negative) mg/dL Urine Ketones (Negative) mg/dL Urine Blood (Negative) Urine Nitrite (Negative) Urine Bilirubin (Negative) Urine Urobilinogen (<2.0) mg/dL Ur Leukocyte Esterase (Negative) Urine WBC (Auto) (0.0-6.0) /HPF Urine RBC (Auto) (0.0-6.0) /HPF U Epithel Cells (Auto) (0-13.0) /HPF Urine Mucus /HPF Salicylates (2.8-20.0) mg/dL Urine Opiates Screen Presumptive negative Urine Methadone Screen Presumptive negative Acetaminophen (10.0-30.0) ug/mL Ur Barbiturates Screen Presumptive negative Ur Phencyclidine Scrn Presumptive negative Ur Amphetamines Screen Presumptive negative U Benzodiazepines Scrn Presumptive negative Urine Cocaine Screen Presumptive negative U Marijuana (THC) Screen Presumptive negative Drugs of Abuse Note Disclamer Plasma/Serum Alcohol (0-0.07) % ED Medical Decision Making - Lab Data Result diagrams: 01/22/20 18:47 01/22/20 18:47 - Medical Decision Making This patient returns to the emergency department with command hallucinations causing suicidal ideations. The patient would have a plan to either jump off of a building or cut her wrists. For these reasons the patient has been made a 1013. Labs have been unremarkable except for a mild urinary tract infection that will be treated with Macrobid. The patient's vital signs have been reassuring throughout her ED course. The psychiatric at home medications have been restarted. Patient was seen by the psychiatric producer arborist manager who, at this time, recommends inpatient stabilization. Critical Care Time: No Critical care attestation.: If time is entered above; I have spent that time in minutes in the direct care of this critically ill patient, excluding procedure time. ED Disposition Clinical Impression: History of command hallucinations, Suicidal ideations Depression Qualifiers: Depression Type: unspecified Qualified Code(s): F32.9 - Major depressive disorder, single episode, unspecified Disposition: DC/TX-65 PSY HOSP/PSY UNIT Is pt being admited?: No Condition: Stable Time of Disposition: 03:50
[2020-01-23] MEDS: NITROFURANTOIN MONOHYD/M-CRYST 100 MG CAP PO SCH ×2 (09:25→10:44)
--- NOTE | 2020-01-23 09:41 | Consultation ---
History of Present Illness - Reason for Consult Consult date: 01/23/20 Reason for consult: MHE Requesting physician: BUSHRA HARKINS - History of Present Psychiatric Illness PSYCH HPI Patient is a 49 year old homeless, unemployed and with children Female with no significant past medical history who presents today with chief complaints of suicidal ideation and command auditory hallucination. Patient reports she feels hopeless, helpless and has nothing to live for. She became homeless in March after her mom had a stroke and her brother took guardianship of the house. She has since then had no place to stay, she also reports her daughter didnt want anything to do with her, her son is not talking to her and no family member cares. SHe endorses prior history of marijuanna and alcohol use, has been living with mom and helping her at home for over 10 years. PAST PSYCHIATRIC HISTORY Diagnoses: Depression and anxiety Suicide attempts or Self-harm behavior: Denies Prior psychiatric hospitalizations: Denies Substance Abuse history: Denies Previous psychiatric medications tried: Not on any medications Outpatient treatment: none reported PAST MEDICAL HISTORY: none reported Family Psychiatric History: None reported or documented SOCIAL HISTORY Marital Status: single Living Arrangements: homeless Employment Status: unemployed Access to guns/weapons: none reported Education: High school drop out History of Abuse: none reported Legal History: yes REVIEW OF SYSTEMS Constitutional: Negative for weight loss ENT: Negative for stridor Respiratory: Negative for cough or hemoptysis All other systems reviewed and are negative MENTAL STATUS EXAMINATION General Appearance and Behavior: Age appropriate, fair hygiene, wearing appropriate clothes, lying in bed, fair eye contact, cooperative questioning. Cooperation: Participating Mood: Depressed, anxious Affect and affective range: Tearful Thought Process: Goal directed Thought Content: Hopelessness, helplessness, hallucinations Speech: Normal volume, Regular rate and rhythm, Suicidal Ideation: Yes Homicidal Ideation: Denies HI Hallucinations: Auditory Delusions: None elicited Impulse Control: Impaired Insight and Judgment: Limited insight and judgment Memory: Short term memory intact Orientation: Alert, oriented, Assessment and Plan Major Depressive Disorder, Severe w/Psychotic Features Generalized Anxiety Disorder Treatment Plan MEDICATIONS Risks, benefits and alternatives of medications discussed with the patient, questions answered and consent obtained from patient. PSYCHOTHERAPY: Supportive psychotherapy provided MEDICAL: Per primary team DELIRIUM PRECAUTIONS: Please re-orient patient frequently, keep lights on during the day, and minimize benzodiazepines and opiates as these medications could worsen patient's confusion. NEEDLE LOOM OPERATOR: DISPOSITION: Recommend acute inpatient psychiatric hospitalization LEGAL STATUS: 1013 FOLLOW-UP: Will follow Thank you for the consult. Please contact with any questions and/or concerns. Medications and Allergies Allergies Allergy/AdvReac Type Severity Reaction Status Date / Time No Known Allergies Allergy Unverified 01/12/20 10:51 Home Medications Medication Instructions Recorded Confirmed Last Taken Type ARIPiprazole [Abilify] 20 mg PO DAILY #30 tablet 01/18/20 01/22/20 Unknown Rx Sertraline [Zoloft] 50 mg PO QDAY #30 tablet 01/18/20 01/22/20 Unknown Rx clonazePAM [ Klonopin] 0.5 mg PO QHS PRN #30 tab 01/18/20 01/22/20 Unknown Rx traZODone [Desyrel] 75 mg PO QHS 01/22/20 01/22/20 Unknown History Active Meds: Active Medications Aripiprazole (Aripiprazole) 20 mg PO DAILY [facility] Clonazepam (Klonopin) 0.5 mg PO QHS PRN PRN Reason: Anxiety Nitrofurantoin Macrocrystals (Macrobid) 100 mg PO Q12HR [facility] Last Admin: 01/23/20 09:25 Dose: Not Given Documented by: Sertraline HCl (Zoloft) 50 mg PO QDAY [facility] Trazodone HCl (Desyrel) 50 mg PO QHS [facility] Mental Status Exam - Vital signs Last Vital Signs Temp 98.1 F 01/23/20 00:47 Pulse 66 01/23/20 00:47 Resp 18 01/23/20 00:47 BP 148/89 01/23/20 00:47 Pulse Ox 98 01/23/20 00:47 Results Result Diagrams: 01/22/20 18:47 01/22/20 18:47 Abnormal lab results 01/22/20 01/22/20 01/22/20 Range/Units 18:47 18:47 18:47 BUN 20 H (7-17) mg/dL Glucose 106 H (65-100) mg/dL Urine WBC (Auto) (0.0-6.0) /HPF Salicylates < 0.3 L (2.8-20.0) mg/dL Acetaminophen 5.0 L (10.0-30.0) ug/mL 01/22/20 Range/Units 20:49 BUN (7-17) mg/dL Glucose (65-100) mg/dL Urine WBC (Auto) 31.0 H (0.0-6.0) /HPF Salicylates (2.8-20.0) mg/dL Acetaminophen (10.0-30.0) ug/mL All other labs normal.
[2020-01-23] MEDS ORDERED: IBUPROFEN 400 MG TAB PO PRN (09:58)
[2020-01-23] MEDS ORDERED: ARIPiprazole 10 MG TAB PO SCH (10:00)
[2020-01-23] MEDS ORDERED: SERTRALINE 50 MG TAB PO SCH (10:00)
[2020-01-23 14:41] LABS: HCG Qualitative,Urine Negative (Negative)
[2020-01-23 15:55] VITALS: BP 107/62
[2020-01-23] MEDS ORDERED: traZODone 50 MG TAB PO SCH (22:00)
== END 2020-01-23 17:50 ==
LOC: ED 18:14
DX: F32.89 Other specified depressive episodes (principal); F17.200 Nicotine dependence, unspecified, uncomplicated; G43.909 Migraine, unspecified, not intractable, without status migrainosus; Z90.49 Acquired absence of other specified parts of digestive tract; Z79.899 Other long term (current) drug therapy; Z98.890 Other specified postprocedural states
CPT/HCPCS: 36415; 80048; 80307; 81001; 81025; 85025; 87086; 99285; U0003; 80320; G0480